=== PATIENT | female | born 2000 | race Caucasian/White ===

== ENCOUNTER 2019-01-12 13:00 | Emergency (ER) | payer BC ==
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
[2019-01-12 15:29] VITALS: BP 113/75
== END 2019-01-12 15:29 | disposition home or self-care (01) ==
DX: S92.352A Displaced fracture of fifth metatarsal bone, left foot, initial encounter for closed fracture (principal); S06.5X9A Traumatic subdural hemorrhage with loss of consciousness of unspecified duration, initial encounter; S01.81XA Laceration without foreign body of other part of head, initial encounter; V29.9XXA Motorcycle rider (driver) (passenger) injured in unspecified traffic accident, initial encounter; Y92.89 Other specified places as the place of occurrence of the external cause
CPT/HCPCS: L4386

== ENCOUNTER → 2019-01-15 | Outpatient (CLI) | payer BC | LOC: CIMAGING 11:33 | PROVIDERS: ATTEND Physician Assistant Medical | DX: S06.5X9D Traumatic subdural hemorrhage with loss of consciousness of unspecified duration, subsequent encounter (principal) | CPT/HCPCS: 70450-PO ==

== ENCOUNTER 2019-01-19 09:09 | Day surgery (SDC) | payer BC ==
[2019-01-19] MEDS ORDERED: BUPIVACAINE 0.5% 30 ML SDV ONE (09:16)
[2019-01-19] MEDS ORDERED: LR 1,000 ML IV ONE (09:24)
[2019-01-19] MEDS ORDERED: ceFAZolin 2 GM/DEXTROSE 100 ML IV ONE (10:11)
--- NOTE | 2019-01-19 10:12 | PDHPUP ---
History & Physical Update H&P update statement: This history and physical update is based on an assessment of the patient which was completed after admission or registration (within 24 hours), but prior to the surgery/procedure. H&P update: H&P reviewed & patient examined, no change in patient's condition since H&P completed
[2019-01-19] MEDS ORDERED: CEFAZOLIN 2 GM/DEXTROSE/100 ML BAG IV ONE (10:13)
[2019-01-19] MEDS ORDERED: MIDAZOLAM 2 MG/2 ML VIAL ONE (10:17)
[2019-01-19] MEDS ORDERED: fentaNYL 100 MCG/2 ML INJ ONE (10:20)
[2019-01-19] MEDS ORDERED: PROPOFOL/EMULSION 500 MG/50 ML BOTTLE IV ONE (10:21)
[2019-01-19] MEDS ORDERED: MIDAZOLAM 2 MG/2 ML VIAL IVP ONE (10:56)
[2019-01-19] MEDS ORDERED: HYDROCODONE/APAP 5/325 TAB PO PRN (11:21)
[2019-01-19] MEDS ORDERED: ALBUTEROL 3 ML DEYVIAL IH PRN (11:21)
[2019-01-19] MEDS ORDERED: NS 500 ML IV PRN (11:21)
[2019-01-19] MEDS ORDERED: ACETAMINOPHEN 500 MG TAB PO PRN (11:21)
[2019-01-19] MEDS ORDERED: oxyCODONE IR 5 MG TAB PO PRN (11:21)
[2019-01-19] MEDS ORDERED: fentaNYL 100 MCG/2 ML INJ IVP PRN (11:21)
[2019-01-19] MEDS ORDERED: ONDANSETRON 4 MG/2 ML VIAL IVP PRN (11:21)
[2019-01-19] MEDS ORDERED: LR 500 ML IV PRN (11:21)
[2019-01-19] MEDS ORDERED: HYDROmorphONE/DILAUDID 1 MG/ML INJ IVP PRN (11:21)
[2019-01-19] MEDS ORDERED: NALOXONE HCL 0.4 MG/ML INJ IVP PRN (11:21)
[2019-01-19] MEDS ORDERED: DEXAMETHASONE 4 MG/ML VIAL IVP PRN (11:21)
--- NOTE | 2019-01-19 12:10 | POSTANESTH ---
Post Anesthetic Evaluation Cardiovascular Status: Normal, Stable Respiratory Status: Normal, Stable Level of Consciousness/Mental Status: Can Participate in Eval Pain Control: Adequate, Prn Tx Ordered Nausea/Vomiting Control: Adequate, Prn Tx Ordered Complications Possibly Related to Anesthesia: None Noted
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
[2019-01-19 12:44] VITALS: BP 114/74
== END 2019-01-19 13:30 | disposition home or self-care (01) ==
LOC: FSGY 09:09
PROVIDERS: ATTEND Orthopaedic Surgery
PROC: BQ1MZZZ Fluoroscopy of Left Foot (ICD-10-PCS; principal; 2019-01-19 10:30)
PROC: 0QQ Lower Bones, Repair (ICD-10-PCS; principal; 2019-01-19 10:30)
DX: S92.352A Displaced fracture of fifth metatarsal bone, left foot, initial encounter for closed fracture (principal); V29.88XA Motorcycle rider (driver) (passenger) injured in other specified transport accidents, initial encounter; G40.909 Epilepsy, unspecified, not intractable, without status epilepticus
CPT/HCPCS: C1713; J0690; J2250; J2704; J3010

== ENCOUNTER → 2019-01-25 | Outpatient (CLI) | payer BC ==
--- NOTE | 2019-01-31 11:27 | CPEEG ---
[f rep st] ELECTROENCEPHALOGRAM DATE OF STUDY: 01/25/2019 DATE OF INTERPRETATION: 01/31/2019. INTERPRETATION: Normal EEG during wakefulness and drowsiness. There were no potentially epileptogen ic abnormalities present in the recording. REPORT: This EEG contains 10 Hz alpha activity over the posterior head regions. There was no abnorm al activation at rest, during photic stimulation or hyperventilation. The patient intermittently bec emily drowsy during the study. There was no abnormal activation during drowsiness or during times of a rousal. /[id number]/MODL
== END ==
LOC: FCPNEURO 15:07
PROVIDERS: ATTEND Psychiatry & Neurology Neurology
DX: R56.9 Unspecified convulsions (principal); S06.5X9D Traumatic subdural hemorrhage with loss of consciousness of unspecified duration, subsequent encounter